=== PATIENT | male | born 1960 | race African-American/Black ===

== ENCOUNTER → 2021-12-04 | Day surgery (SDC) | payer MEDICARE ==
[2021-12-01 10:32] LABS: BASOPHILS % 0.2 % (0.0-1.0); EOSINOPHILS % 0.3 % (0.0-6.0); HEMATOCRIT 43.7 % (38.2-49.6); HEMOGLOBIN 15.2 g/dL (14.0-18.0); LYMPHOCYTES # (AUTO) 1.2 (1.0-3.2); LYMPHOCYTES % 18.7 % (18.0-39.1); MEAN CORPUSCULAR HEMOGLOBIN 31.3 pg (28-32); MEAN CORPUSCULAR HGB CONC 34.8 g/dL (31-35); MEAN CORPUSCULAR VOLUME 90.1 fL (81-99); MONOCYTES # (AUTO) 0.5 (0.2-0.8); MONOCYTES % 6.9 % (4.4-11.3); NEUTROPHILS # (AUTO) 4.8 (2.1-6.9); NEUTROPHILS % 73.6 % (38.7-80.0); PLATELET COUNT 280 x10e3/uL (140-360); RED BLOOD COUNT 4.85 x10e6/uL (4.3-5.7); RED CELL DISTRIBUTION WIDTH 12.5 % (11.7-14.4)
[2021-12-01 10:45] LABS: INR 0.96; PROTHROMBIN TIME 13.7 seconds (11.9-14.5)
[2021-12-01 10:46] LABS: PARTIAL THROMBOPLASTIN TIME 29.7 seconds (23.8-35.5)
[2021-12-01 10:57] LABS: BLOOD UREA NITROGEN 19 mg/dL (7-26); BUN/CREATININE RATIO 20 (6-25); CALCIUM 9.6 mg/dL (8.4-10.2); CARBON DIOXIDE 23 mmol/L (22-29); CHLORIDE 109 mmol/L (98-107); CREATININE, SERUM 0.93 mg/dL (0.72-1.25); GLUCOSE 115 mg/dL (74-118); SODIUM 142 mmol/L (136-145)
[~2021-12-04] VITALS: Ht 170.2 cm; Wt 79.4 kg
[2021-12-04] VITALS (19 sets, daily range): BP systolic 123–173; BP diastolic 72–107
[~2021-12-04] MED LIST: AMLODIPINE BESY10 MG PO; ASPIRIN81 MG PO; ATORVASTATIN CA20 MG PO; BISACODYL5 MG PO; CLONAZEPAM0.5 MG PO; FENTANYL CITRATE/PF 100MCG/2 ML INJ ONE; HEPARIN SOD (PORCINE) 1000 UNIT/ML 30ML ONE; HEPARIN SOD/SOD CHLORIDE 2,000 ML ONE; IOPAMIDOL 370 MG/ML 100 ML INFUS..BTL INJ ONE; LIDOCAINE 1% 10 ML MULTIDOSE VIAL IJ ONE; LIOTHYRONINE SO5 MCG PO; METHOCARBAMOL500 MG; MIDAZOLAM HCL 2 MG/2 ML VIAL ONE; NITROGLYCERIN/D5W 200 MCG/ML 250 ML ONE; SERTRALINE HCL100 MG PO; SODIUM CHLORIDE 0.9% 1000ML 1,000 ML ONE; SYNTHROID75 MCG PO; TRICOR145 MG PO; ULTRAM 50MG50 MG PO
== END | disposition home or self-care (01) ==
LOC: CATH LAB 06:52
PROVIDERS: ATTEND Internal Medicine Cardiovascular Disease
DX: I65.23 Occlusion and stenosis of bilateral carotid arteries (principal); I10 Essential (primary) hypertension; Z01.812 Encounter for preprocedural laboratory examination; Z20.822 Contact with and (suspected) exposure to COVID-19; Z86.73 Personal history of transient ischemic attack (TIA), and cerebral infarction without residual deficits
CPT/HCPCS: 0223U; 36222; 36415 ×2; 80048; 82948; 85025; 85610; 85730; C1760; C1769 ×2; J1644; J2250; J3010; J7030; Q9967; 36200; 99152; 99153